=== PATIENT | male | born 1960 | race American Indian/Alaskan Native ===

== ENCOUNTER 2017-07-22 01:22 | Emergency (ER) | payer MEDICAID, OTHER ==
--- NOTE | 2017-07-22 02:21 | ED PDOC ---
Arrival/HPI - General Chief Complaint: Seizure Time Seen by Provider: 07/22/17 01:31 Historian: Patient, EMS - History of Present Illness Narrative History of Present Illness (Text): 07/22/17 02:21 Zak Ni is a 57 year old male, whose past medical history includes seizures and alcohol abuse, who presents to the Emergency department brought in by EMS after patient possible found intoxicated with possible alcohol withdrawal seizure tonight, however it is unknown. Patient was seen yesterday at [facility], where he is known to frequent. Patient appears homeless. Patient denies any fever, chills, chest pain, shortness of breath, nausea, vomiting, diarrhea, urinary symptoms, back pain, neck pain, headache, dizziness, or any other complaints. Time/Duration: Prior to Arrival Symptom Onset: Gradual Symptom Course: Unchanged Activities at Onset: Light Past Medical History - Provider Review Nursing Documentation Reviewed: Yes - Cardiac Hx Cardiac Disorders: No - Pulmonary Hx Respiratory Disorders: No - Neurological Hx Seizures: Yes - HEENT Hx HEENT Disorder: No - Endocrine/Metabolic Hx Diabetes Mellitus Type 2: Yes - Hematological/Oncological Hx Blood Disorders: No - Integumentary Hx Dermatological Disorder: No - Musculoskeletal/Rheumatological Hx Musculoskeletal Disorders: No - Gastrointestinal Hx Gastrointestinal Disorders: No - Genitourinary/Gynecological Hx Genitourinary Disorders: No - Psychiatric Hx Psychophysiologic Disorder: No Hx Substance Use: No - Anesthesia Hx Anesthesia: No Family/Social History - Physician Review Nursing Documentation Reviewed: Yes Family/Social History: Unknown Family HX Smoking Status: Never Smoked Hx Alcohol Use: No Hx Substance Use: No Allergies/Home Meds Allergies/Adverse Reactions: Allergies No Known Allergies Allergy (Verified 07/22/17 01:34) Home Medications: Home Meds Medication Instructions Recorded Confirmed Unobtainable 07/22/17 07/22/17 Review of Systems - Physician Review All systems were reviewed & negative as marked: Yes - Review of Systems Constitutional: Normal. absent: Fevers Eyes: Normal ENT: Normal Respiratory: Normal. absent: SOB, Cough Cardiovascular: Normal. absent: Chest Pain Gastrointestinal: Normal. absent: Abdominal Pain, Diarrhea, Nausea, Vomiting Genitourinary Male: Normal. absent: Dysuria, Frequency, Hematuria, Urinary Output Changes Musculoskeletal: Normal. absent: Back Pain, Neck Pain Skin: Normal. absent: Rash Neurological: absent: Headache, Dizziness Endocrine: Normal Hemo/Lymphatic: Normal Psychiatric: Normal Physical Exam Vital Signs Reviewed: Yes Vital Signs Temp Pulse Resp BP Pulse Ox 07/22/17 02:00 97.4 F L 88 18 145/100 H 98 Temperature: Afebrile Blood Pressure: Normal Pulse: Regular Respiratory Rate: Normal Appearance: Positive for: Well-Appearing, Non-Toxic, Comfortable, Unkept Pain Distress: None Mental Status: Positive for: other (Drowst but arousable/AOB) Finger Stick Blood Glucose: 88 - Systems Exam Head: Present: Atraumatic, Normocephalic Pupils: Present: PERRL Extroacular Muscles: Present: EOMI Conjunctiva: Present: Normal Ears: Present: NORMAL TM Mouth: Present: Moist Mucous Membranes Neck: Present: Normal Range of Motion Respiratory/Chest: Present: Clear to Auscultation, Good Air Exchange. No: Respiratory Distress, Accessory Muscle Use Cardiovascular: Present: Regular Rate and Rhythm, Normal S1, S2. No: Murmurs Abdomen: No: Tenderness, Distention, Peritoneal Signs Back: Present: Normal Inspection Upper Extremity: Present: Normal Inspection. No: Cyanosis, Edema Lower Extremity: Present: Normal Inspection. No: Edema Neurological: Present: GCS=15, CN II-XII Intact, Motor Func Grossly Intact, Normal Sensory Function Skin: Present: Warm, Dry, Normal Color. No: Rashes Psychiatric: Present: Intoxicated Medical Decision Making ED Course and Treatment: 07/22/17 02:21 Impression: 57 year old male intoxicated with questionaable alcohol related seizure. Plan: -- EKG -- Labs, cardiac enzymes, alcohol level, Dilantin level -- Reassess and disposition Progress Notes: Reviewed EKG, NSR at [address]-segment elevations or depressions, no T-wave inversions, normal intervals. 07/22/17 07:00 Case endorsed to pending sobriety/reassess/final disposition - Lab Interpretations Lab Results: 07/22/17 03:30 07/22/17 03:30 Lab Results 07/22/17 03:30: Alcohol, Quantitative 268 H 07/22/17 03:30: Phenytoin < 3 L 07/22/17 03:30: WBC 3.6 L, RBC 3.09 L, Hgb 10.3 L, Hct 31.2 L, MCV 101.0, MCH 33.3, MCHC 33.0, RDW 15.2 H, Plt Count 79 L, MPV 9.2 07/22/17 03:30: Sodium 148, Potassium 3.8, Chloride 110 H, Carbon Dioxide 23, Anion Gap 18, BUN 9, Creatinine 0.6 L, Est GFR ( Amer) > 60, Est GFR (Non -Af Amer) > 60, Random Glucose 100, Calcium 8.6, Total Bilirubin 0.5, AST 118 H , ALT 29, Alkaline Phosphatase 101, Lactate Dehydrogenase 540, Total Creatine Kinase 332 H, CK-MB (CK-2) 3.0, CK-MB (CK-2) % Cancelled, Troponin I 0.02, Total Protein 8.4 H, Albumin 3.8, Globulin 4.6, Albumin/Globulin Ratio 0.8 L 07/22/17 02:10: POC Glucose (mg/dL) 88 - EKG Interpretation Interpreted by ED Physician: Yes Type: 12 lead EKG - Scribe Statement The provider has reviewed the documentation as recorded by the eFr Cohen Provider Scribe Attestation: All medical record entries made by the Scribe were at my direction and personally dictated by me. I have reviewed the chart and agree that the record accurately reflects my personal performance of the history, physical exam, medical decision making, and the department course for this patient. I have also personally directed, reviewed, and agree with the discharge instructions and disposition. Disposition/Present on Arrival - Present on Arrival Any Indicators Present on Arrival: No History of DVT/PE: No History of Uncontrolled Diabetes: No Urinary Catheter: No History of Decub. Ulcer: No History Surgical Site Infection Following: None - Disposition Have Diagnosis and Disposition been Completed?: No Diagnosis: Alcohol intoxication Disposition Time: 07:00 Condition: STABLE Forms: [employer] (Yoruba)
[2017-07-22 04:00] LABS: HEMOGLOBIN 10.3 g/dL (14.0-18.0); MEAN CORPUSCULAR HEMOGLOBIN 33.3 pg (25.0-35.0); MEAN PLATELET VOLUME 9.2 fl (7.0-11.0); RBC 3.09 10^6/uL (3.5-6.1); RED CELL DISTRIBUTION WIDTH 15.2 % (11.5-14.5); WHITE BLOOD COUNT 3.6 10^3/ul (4.5-11.0)
[2017-07-22 04:13] LABS: ALB/GLOB RATIO 0.8 (1.1-1.8); ALBUMIN 3.8 g/dL (3.0-4.8); ALT/SGPT 29 U/L (7-56); AST/SGOT 118 U/L (17-59); BLOOD UREA NITROGEN 9 mg/dL (7-21); CALCIUM 8.6 mg/dL (8.4-10.5); GFR AFRICAN-AMERICAN > 60; GFR NON-AFRICAN AMERICAN > 60
[2017-07-22 04:23] LABS: TROPONIN I 0.02 ng/mL
--- NOTE | 2017-07-22 07:07 | ED PDOC ---
Physical Exam - Physical Exam Narrative Physical Exam (Text): You are Zak Ni a 57 year old male, whose past medical history includes seizures and alcohol abuse, who presents to the Emergency department brought in by EMS after patient found intoxicated with possible alcohol withdrawal seizure tonight, and after clarification you didn't have a seizure were without urinary or bowel control loss, generalized shaking or head injury. You deny any fever, chills, chest pain, shortness of breath, nausea, vomiting, diarrhea, urinary symptoms, back pain, neck pain, headache, dizziness, bleeding, or any other complaints. Vital Signs Reviewed: Yes Vital Signs Temp Pulse Resp BP Pulse Ox 07/22/17 07:42 95 H 18 125/69 96 07/22/17 06:07 98 H 18 115/73 96 07/22/17 02:00 97.4 F L 88 18 145/100 H 98 Temperature: Afebrile Blood Pressure: Hypertensive Pulse: Regular Respiratory Rate: Normal Appearance: Positive for: Well-Appearing, Non-Toxic, Comfortable Pain Distress: None Mental Status: Positive for: Alert and Oriented X 3 Finger Stick Blood Glucose: 88 - Systems Exam Head: Present: Atraumatic, Normocephalic Pupils: Present: PERRL Extroacular Muscles: Present: EOMI Conjunctiva: Present: Normal Ears: Present: Normal Mouth: Present: Moist Mucous Membranes Pharnyx: Present: Normal Nose (External): Present: Atraumatic Nose (Internal): Present: Normal Inspection Neck: Present: Normal Range of Motion, Other (no c-t-l spinal or parapinal tenderness) Respiratory/Chest: Present: Clear to Auscultation, Good Air Exchange Cardiovascular: Present: Regular Rate and Rhythm Abdomen: No: Tenderness, Distention, Normal Bowel Sounds, Peritoneal Signs, Rebound, Guarding, McBurney's Point Tender, Rovsing's Sign Present, Hernias, Feeding Tubes, Ostomy Tubes, Mass/Organomegaly, Scars, Other Back: Present: Normal Inspection Upper Extremity: Present: Normal Inspection Lower Extremity: Present: Normal Inspection Neurological: Present: GCS=15, CN II-XII Intact, Speech Normal, Motor Func Grossly Intact Skin: Present: Warm, Normal Color Psychiatric: Present: Alert, Oriented x 3, Normal Insight, Normal Concentration Medical Decision Making ED Course and Treatment: You are Zak Ni a 57 year old male, whose past medical history includes seizures and alcohol abuse, who presents to the Emergency department brought in by EMS after patient found intoxicated with possible alcohol withdrawal seizure tonight, and after clarification you didn't have a seizure were without urinary or bowel control loss, generalized shaking or head injury. You deny any fever, chills, chest pain, shortness of breath, nausea, vomiting, diarrhea, urinary symptoms, back pain, neck pain, headache, clarified no dizziness, bleeding, thoughts to harm yourself or others or hallucinations, or any other complaints. You were otherwise breathing easily, talking easily, good strength/sensation, walking easily, clear lungs, no abdomen tenderness, no fever temp 97.4, stable heart rate 98, stable breathing rate 18, excellent oxygen level 96% room air, stable blood pressure 115/73 which we recommend repeat in 2-3 days primary care office to determine further treatment, you have blood tests no infection count 3.6, stable blood level hemoglobin 10 and low platelets 79, stable chemistry, alcohol level 268, ECG normal sinus rhythm, observation done in the ED with improvement/sober status, counselled to stop drinking and thus discharged home. 1. Recommend follow-up primary care 1-2 days to review symptoms, referral to hematology/oncology clinic for low platelets to ensure no complications, referral to neurology clinic to review your symptoms, referral to detox rehab to stop drinking alcohol, referral to gastroenterology clinic for liver AST 118 elevated to ensure no complications. 3. If any worsening pain, fever, chills, nausea, vomiting, difficulty breathing, numbness, loss of limb function, pain with urination or any medical condition then return to the ED. 07/22/17 07:03 07/22/17 07:11 07/22/17 07:11 07/22/17 07:31 Reassessment Condition: Re-examined, Improved - Lab Interpretations Lab Results: 07/22/17 03:30 07/22/17 03:30 Lab Results 07/22/17 03:30: Alcohol, Quantitative 268 H 07/22/17 03:30: Phenytoin < 3 L 07/22/17 03:30: WBC 3.6 L, RBC 3.09 L, Hgb 10.3 L, Hct 31.2 L, MCV 101.0, MCH 33.3, MCHC 33.0, RDW 15.2 H, Plt Count 79 L, MPV 9.2 07/22/17 03:30: Sodium 148, Potassium 3.8, Chloride 110 H, Carbon Dioxide 23, Anion Gap 18, BUN 9, Creatinine 0.6 L, Est GFR ( Amer) > 60, Est GFR (Non -Af Amer) > 60, Random Glucose 100, Calcium 8.6, Total Bilirubin 0.5, AST 118 H , ALT 29, Alkaline Phosphatase 101, Lactate Dehydrogenase 540, Total Creatine Kinase 332 H, CK-MB (CK-2) 3.0, CK-MB (CK-2) % Cancelled, Troponin I 0.02, Total Protein 8.4 H, Albumin 3.8, Globulin 4.6, Albumin/Globulin Ratio 0.8 L 07/22/17 02:10: POC Glucose (mg/dL) 88 I have reviewed the lab results: Yes Disposition/Present on Arrival - Present on Arrival Any Indicators Present on Arrival: No History of DVT/PE: No History of Uncontrolled Diabetes: No Urinary Catheter: No History of Decub. Ulcer: No History Surgical Site Infection Following: None - Disposition Have Diagnosis and Disposition been Completed?: Yes Diagnosis: Alcohol intoxication Disposition Time: :29 Patient Plan: Discharge Patient Problems: Current Active Problems Problem Status Onset Alcohol intoxication Acute Condition: IMPROVED Discharge Instructions (ExitCare): Alcohol Abuse and Alcoholism (DC) Additional Instructions: You are Zak Ni a 57 year old male, whose past medical history includes seizures and alcohol abuse, who presents to the Emergency department brought in by EMS after patient found intoxicated with possible alcohol withdrawal seizure tonight, and after clarification you didn't have a seizure were without urinary or bowel control loss, generalized shaking or head injury. You deny any fever, chills, chest pain, shortness of breath, nausea, vomiting, diarrhea, urinary symptoms, back pain, neck pain, headache, clarified no dizziness, bleeding, thoughts to harm yourself or others or hallucinations, or any other complaints. You were otherwise breathing easily, talking easily, good strength/sensation, walking easily, clear lungs, no abdomen tenderness, no fever temp 97.4, stable heart rate 98, stable breathing rate 18, excellent oxygen level 96% room air, stable blood pressure 115/73 which we recommend repeat in 2-3 days primary care office to determine further treatment, you have blood tests no infection count 3.6, stable blood level hemoglobin 10 and low platelets 79, stable chemistry, alcohol level 268, ECG normal sinus rhythm, observation done in the ED with improvement/sober status, counselled to stop drinking and thus discharged home. 1. Recommend follow-up primary care 1-2 days to review symptoms, referral to hematology/oncology clinic for low platelets to ensure no complications, referral to neurology clinic to review your symptoms, referral to detox rehab to stop drinking alcohol, referral to gastroenterology clinic for liver AST 118 elevated to ensure no complications. 3. If any worsening pain, fever, chills, nausea, vomiting, difficulty breathing, numbness, loss of limb function, pain with urination or any medical condition then return to the ED. Forms: [employer] (Malay)
[2017-07-22 09:49] VITALS: BP 140/76; PULSE 90; RESP 16; TEMP 98.2; O2SAT 99
--- NOTE | 2017-07-22 11:01 | CARD ---
APPROVED REPORT EKG Measurement Heart [id number] <Conclusion> Normal sinus rhythm Normal ECG
== END 2017-07-22 10:00 | disposition home or self-care (01) ==
LOC: ED 01:22 → MERGE 01:22 → ED 10:00
DX: F10.129 Alcohol abuse with intoxication, unspecified (principal); Y90.8 Blood alcohol level of 240 mg/100 ml or more; E11.9 Type 2 diabetes mellitus without complications
CPT/HCPCS: 80053; 80185; 82550; 82553; 82948; 83615; 84484; 85027; 93005; 99285; G0480